=== PATIENT | female | born 1980 | race Caucasian/White ===

== ENCOUNTER 2017-03-17 12:40 | Observation (INO) | payer OTHER ==
[~2017-03-17] VITALS: Ht 163 cm; Wt 77.5 kg
[~2017-03-17 12:40] MED LIST: NIFE10CA PO; PREN-65 PO
[2017-03-17] MEDS ORDERED: NIFEdipine 10 MG CAPSULE PO ONE (13:45)
[2017-03-17] MEDS ORDERED: RINGERS SOLUTION,LACTATED 1,000 ML IV SCH (15:18)
[2017-03-17] MEDS ORDERED: RINGERS SOLUTION,LACTATED 1,000 ML IV ONE (15:22)
== END 2017-03-17 17:12 | disposition home or self-care (01) ==
LOC: 4S 12:40
PROVIDERS: ADMIT Specialist; ATTEND Specialist
DX: O26.893 Other specified pregnancy related conditions, third trimester (principal); R10.30 Lower abdominal pain, unspecified; Z3A.35 35 weeks gestation of pregnancy
CPT/HCPCS: 59025; 96360; G0378; J7120

== ENCOUNTER 2017-04-07 15:58 | Inpatient (IN) | payer OTHER ==
[~2017-04-07] VITALS: Ht 163 cm; Wt 82.6 kg
[~2017-04-07 15:58] MED LIST changes: +DEXAMETHASONE SOD PHOS 4 MG/ML VIAL IVP ONE; +EPHEDrine SULFATE 50 MG/ML VIAL IM ONE; +FentaNYL CITRATE-PF 100 MCG/2 ML VIAL IVP ONE; +GLYCOPYRROLATE 0.2 MG/ML VIAL IM ONE; +ONDANSETRON HCL 4 MG/2 ML VIAL IVP ONE; +OXYTOCIN 10 UNITS/ML VIAL IM ONE
[2017-04-07 17:49] VITALS: BP 120/77
[2017-04-07] MEDS: RINGERS SOLUTION,LACTATED 1,000 ML IV SCH ×2 (18:20→18:54)
[2017-04-07] MEDS ORDERED: RINGERS SOLUTION,LACTATED 1,000 ML IV ONE (20:49)
[2017-04-07] MEDS ORDERED: CITRIC ACID/SODIUM CITRATE 30 ML SOLUTION UDCUP PO ONE (21:00)
[2017-04-07] MEDS ORDERED: METOCLOPRAMIDE HCL 5 MG/ML 2 ML VIAL IVP ONE (21:00)
[2017-04-07] MEDS: FentaNYL CITRATE-PF 100 MCG/2 ML VIAL IVP PRN ×2 (21:17→21:21)
[2017-04-07 21:22] LABS: BASOPHILS % (AUTO) 0.3 % (0.0-2.0); EOSINOPHILS % (AUTO) 0.7 % (1.0-6.0); HEMATOCRIT 31.9 % (36-46); HEMOGLOBIN 10.8 g/dL (12.0-16.0); LYMPHOCYTES # (AUTO) 2.4 K/uL (1.0-4.8); LYMPHOCYTES % (AUTO) 23.7 % (22.0-44.0); MEAN CORPUSCULAR HEMOGLOBIN 30.4 pg (26.0-34.0); MEAN CORPUSCULAR HGB CONC 33.8 G/dL (31.0-37.0); MEAN CORPUSCULAR VOLUME 90 fL (80-100); MONOCYTES # (AUTO) 0.9 K/uL (0.1-1.0); MONOCYTES % (AUTO) 8.8 % (2.0-9.0); NEUTROPHILS # (AUTO) 6.7 K/uL (1.8-7.7); NEUTROPHILS % (AUTO) 66.5 % (40.0-70.0); RED BLOOD CELL COUNT(AUTO) 3.55 MIL/uL (4.00-5.20); RED CELL DISTRIBUTION WIDTH 16.3 % (11.5-14.5)
[2017-04-07] MEDS ORDERED: MORPHINE SULFATE/PF 1 MG/ML 10 ML AMP ONE (21:52)
[2017-04-07] MEDS ORDERED: OXYGEN THERAPY IH SCH ×2 (22:15)
[2017-04-07] MEDS ORDERED: NALOXONE HCL 0.4 MG/ML VIAL IVP PRN (22:15)
[2017-04-07] MEDS ORDERED: MEPERIDINE-PF 25 MG/ML SYRINGE IVP PRN (22:15)
[2017-04-07] MEDS ORDERED: ONDANSETRON HCL 4 MG/2 ML VIAL IVP PRN (22:15)
[2017-04-07] MEDS ORDERED: NALBUPHINE HCL 10 MG/ML VIAL IVP PRN ×2 (22:15)
[2017-04-07] MEDS: OXYGEN THERAPY IH SCH (22:15)
[2017-04-07] MEDS ORDERED: DiphenhydrAMINE HCL 50 MG/ML VIAL IVP PRN (22:15)
[2017-04-07] MEDS ORDERED: GUM MASTIC/STORAX/MSAL/ALCOHOL LIQUID 0.67 ML VIAL TP ONE (23:04)
[2017-04-07] MEDS ORDERED: CARBOPROST TROMETHAMINE 250 MCG/ML AMP IM ONE (23:04)
[2017-04-07] MEDS ORDERED: LANOLIN 7 GM OINTMENT TP PRN (23:30)
[2017-04-07] MEDS ORDERED: METHYLERGONOVINE MALEATE 0.2 MG TABLET PO PRN (23:30)
[2017-04-07] MEDS ORDERED: IBUPROFEN 800 MG TABLET PO PRN (23:30)
[2017-04-07] MEDS ORDERED: OxyCODONE HCL/ACETAMINOPHEN 5-325 MG TABLET PO PRN (23:30)
[2017-04-07] MEDS ORDERED: MISOPROSTOL 100 MCG TABLET ONE (23:33)
[2017-04-08] MEDS: NALBUPHINE HCL 10 MG/ML VIAL IVP SCH ×4 (00:17→18:29)
[2017-04-08] MEDS ORDERED: CARBOPROST TROMETHAMINE 250 MCG/ML AMP IM ONE (00:30)
[2017-04-08] MEDS ORDERED: MISOPROSTOL 100 MCG TABLET PR ONE (00:30)
[2017-04-08] MEDS: FentaNYL CITRATE-PF 100 MCG/2 ML VIAL IVP PRN ×3 (01:24→15:45)
[2017-04-08] MEDS: DEXTROSE 5%-LACTATED RINGERS 1,000 ML IV SCH ×2 (01:24→10:17)
[2017-04-08 06:00] LABS: EOSINOPHILS % (AUTO) 0 % (1.0-6.0); HEMATOCRIT 23.5 % (36-46); HEMOGLOBIN 7.9 g/dL (12.0-16.0); LYMPHOCYTES # (AUTO) 0.9 K/uL (1.0-4.8); LYMPHOCYTES % (AUTO) 5.4 % (22.0-44.0); MEAN CORPUSCULAR HEMOGLOBIN 30.8 pg (26.0-34.0); MEAN CORPUSCULAR HGB CONC 33.8 G/dL (31.0-37.0); MEAN CORPUSCULAR VOLUME 91 fL (80-100); MONOCYTES % (AUTO) 5.7 % (2.0-9.0); NEUTROPHILS # (AUTO) 15.2 K/uL (1.8-7.7); RED BLOOD CELL COUNT(AUTO) 2.57 MIL/uL (4.00-5.20); RED CELL DISTRIBUTION WIDTH 16.1 % (11.5-14.5); WHITE BLOOD COUNT (AUTO) 17.1 K/uL (4.5-11.0)
[2017-04-08] MEDS: CeFAZolin 2 GM/DEXTROSE 50 ML IV SCH ×2 (06:38→15:39)
[2017-04-08 07:15] LABS: NEUTROPHILS % (AUTO) 88.9 % (40.0-70.0)
[2017-04-08] MEDS: OXYGEN THERAPY IH SCH ×2 (08:00→20:00)
[2017-04-08] MEDS: SENNA/DOCUSATE SODIUM 187-50 MG TABLET PO PRN ×3 (09:25→22:07)
[2017-04-08] MEDS: MAGNESIUM HYDROXIDE SUSPENSION 30 ML UDCUP PO PRN ×2 (09:25→22:08)
[2017-04-08] MEDS ORDERED: SOD FERRIC GLUC COMPLX/SUCROSE 125 MG in SODIUM CHLORIDE 0.9% 100 ML IV ONE (13:00)
[2017-04-08] MEDS ORDERED: KETOROLAC TROMETHAMINE 30 MG/ML VIAL IVP ONE (17:00)
[2017-04-08] MEDS: OxyCODONE HCL/ACETAMINOPHEN 5-325 MG TABLET PO PRN (22:08)
[2017-04-09] MEDS: IBUPROFEN 800 MG TABLET PO SCH ×4 (00:21→19:44)
[2017-04-09] MEDS: NALBUPHINE HCL 10 MG/ML VIAL IVP SCH (00:25)
[2017-04-09] MEDS: SENNA/DOCUSATE SODIUM 187-50 MG TABLET PO PRN (08:29)
[2017-04-09] MEDS: MAGNESIUM HYDROXIDE SUSPENSION 30 ML UDCUP PO PRN (08:29)
[2017-04-09] MEDS: OxyCODONE HCL/ACETAMINOPHEN 5-325 MG TABLET PO PRN ×2 (10:38→20:47)
[2017-04-09 13:24] LABS: BASOPHILS # (AUTO) 0.04 K/uL (0.00-0.20); BASOPHILS % (AUTO) 0.2 % (0.0-2.0); EOSINOPHILS # (AUTO) 0.04 K/uL (0.00-0.70); EOSINOPHILS % (AUTO) 0.23 % (1.0-6.0); LYMPHOCYTES # (AUTO) 2.4 K/uL (1.0-4.8); LYMPHOCYTES % (AUTO) 12.8 % (22.0-44.0); MEAN CORPUSCULAR HEMOGLOBIN 30.8 pg (26.0-34.0); MEAN CORPUSCULAR VOLUME 93 fL (80-100); MONOCYTES # (AUTO) 1.5 K/uL (0.1-1.0); MONOCYTES % (AUTO) 7.8 % (2.0-9.0); NEUTROPHILS # (AUTO) 14.9 K/uL (1.8-7.7); NEUTROPHILS % (AUTO) 78.9 % (40.0-70.0); RED BLOOD CELL COUNT(AUTO) 2.25 MIL/uL (4.00-5.20); WHITE BLOOD COUNT (AUTO) 18.9 K/uL (4.5-11.0)
[2017-04-09 13:27] LABS: HEMOGLOBIN 6.9 g/dL (12.0-16.0)
[2017-04-09] MEDS ORDERED: SOD FERRIC GLUC COMPLX IV ONE (14:00)
[2017-04-09] MEDS ORDERED: SODIUM CHLORIDE 0.9% IV ONE (14:00)
[2017-04-09] MEDS ORDERED: SUCROSE IV ONE (14:00)
[2017-04-09] MEDS ORDERED: SOD FERRIC GLUC COMPLX/SUCROSE 125 MG in SODIUM CHLORIDE 0.9% 100 ML IV ONE (14:30)
[2017-04-10] MEDS: IBUPROFEN 800 MG TABLET PO SCH ×3 (02:06→14:28)
[2017-04-10 07:11] LABS: MEAN CORPUSCULAR HEMOGLOBIN 30.6 pg (26.0-34.0); MEAN CORPUSCULAR HGB CONC 33.4 G/dL (31.0-37.0); MEAN CORPUSCULAR VOLUME 91 fL (80-100); RED BLOOD CELL COUNT(AUTO) 2.22 MIL/uL (4.00-5.20); WHITE BLOOD COUNT (AUTO) 16.3 K/uL (4.5-11.0)
[2017-04-10 07:40] LABS: HEMATOCRIT 20.3 % (36-46); HEMOGLOBIN 6.8 g/dL (12.0-16.0)
[2017-04-10] MEDS: OxyCODONE HCL/ACETAMINOPHEN 5-325 MG TABLET PO PRN (08:04)
[2017-04-10] MEDS ORDERED: SODIUM CHLORIDE 0.9% 1,000 ML IV ONE (10:15)
[2017-04-10 10:43] LABS: BAND NEUTROPHILS % (MANUAL) 12 % (1-5); LYMPHOCYTES % (MANUAL) 16 % (22-44); TOTAL CELLS COUNTED 100
[2017-04-10 10:44] LABS: RBC MORPHOLOGY COMMENT ABNORMAL RBC MORPH
[2017-04-10 11:45] VITALS: BP 118/74
[2017-04-10 13:00] VITALS: BP 119/77
[2017-04-10] MEDS ORDERED: HYDR-309 PO (14:14)
[2017-04-10] MEDS ORDERED: FERR-89 PO (14:17)
[2017-04-10] MEDS ORDERED: DSS100 PO (14:18)
[2017-04-10] MEDS ORDERED: IBUP-1547 PO (14:20)
[2017-04-10 17:08] LABS: BASOPHILS # (AUTO) 0.05 K/uL (0.00-0.20); BASOPHILS % (AUTO) 0.3 % (0.0-2.0); EOSINOPHILS # (AUTO) 0.06 K/uL (0.00-0.70); EOSINOPHILS % (AUTO) 0.41 % (1.0-6.0); HEMATOCRIT 25.6 % (36-46); HEMOGLOBIN 8.7 g/dL (12.0-16.0); LYMPHOCYTES # (AUTO) 2.5 K/uL (1.0-4.8); LYMPHOCYTES % (AUTO) 16.5 % (22.0-44.0); MEAN CORPUSCULAR HEMOGLOBIN 30.7 pg (26.0-34.0); MEAN CORPUSCULAR HGB CONC 33.9 G/dL (31.0-37.0); MEAN CORPUSCULAR VOLUME 91 fL (80-100); MONOCYTES # (AUTO) 1.3 K/uL (0.1-1.0); MONOCYTES % (AUTO) 8.4 % (2.0-9.0); NEUTROPHILS # (AUTO) 11.2 K/uL (1.8-7.7); NEUTROPHILS % (AUTO) 74.3 % (40.0-70.0); RED BLOOD CELL COUNT(AUTO) 2.83 MIL/uL (4.00-5.20); RED CELL DISTRIBUTION WIDTH 16.2 % (11.5-14.5); WHITE BLOOD COUNT (AUTO) 15.1 K/uL (4.5-11.0)
== END 2017-04-10 18:15 | disposition home or self-care (01) | DRG 766 ==
LOC: 4S 15:58 → OBSVTOIN 15:58 → 4S 04-08 00:56
PROVIDERS: ADMIT Specialist; ATTEND Specialist
PROC: 10D00Z1 Extraction of Products of Conception, Low, Open Approach (ICD-10-PCS; principal; 2017-04-07)
PROC: 30233N1 Transfusion of Nonautologous Red Blood Cells into Peripheral Vein, Percutaneous Approach (ICD-10-PCS; 2017-04-10)
DX: O34.211 Maternal care for low transverse scar from previous cesarean delivery (principal); Z37.0 Single live birth; Z3A.38 38 weeks gestation of pregnancy; Z88.2 Allergy status to sulfonamides
CPT/HCPCS: 86850; 86900; 86901; 86920; 87081; J0690; J1100; J1885; J2300; J2405; J2590; J2765; J2916; J3010; J3490; J7030; J7050; J7120; P9016